=== PATIENT | female | born 1990 | race Caucasian/White ===

== ENCOUNTER 2016-11-07 06:03 | Inpatient (IN) | payer SELFPAY ==
[~2016-11-07] VITALS: Ht 170.2 cm; Wt 74.9 kg
[2016-11-07] MEDS ORDERED: SODIUM CHLORIDE 0.9% 1,000 ML IV ONE (06:29)
[2016-11-07] MEDS ORDERED: SODIUM CHLORIDE 0.9% 1,000ML IVBOLUS ONE (06:30)
[2016-11-07] MEDS ORDERED: ONDANSETRON 2MG/ML, 2ML IVPush ONE (06:30)
[2016-11-07] MEDS ORDERED: ONDANSETRON 2MG/ML, 2ML ONE (06:35)
[2016-11-07] MEDS ORDERED: MORPHINE SULFATE 4 MG/ML, 1ML ONE ×3 (06:35→08:54)
[2016-11-07] MEDS: MORPHINE SULFATE 4 MG/ML, 1ML IVPush PRN ×2 (06:40→07:34)
[2016-11-07 06:48] LABS: HCG UR OBC PASS
[2016-11-07 06:53] LABS: BLOOD UREA NITROGEN 10 mg/dL (7-18)
[2016-11-07 07:02] LABS: ASPARTATE AMINO TRANSFERASE 83 U/L (15-37)
[2016-11-07] MEDS ORDERED: CEFTRIAXONE PMX 1GM/50ML 50 ML IVPB ONE (08:30)
[2016-11-07] MEDS ORDERED: CEFTRIAXONE PMX 1GM/50ML 50 ML ONE (08:54)
[2016-11-07] MEDS ORDERED: MORPHINE SULFATE 4 MG/ML, 1ML IVPush PRN (09:00)
[2016-11-07] MEDS ORDERED: ONDANSETRON ODT 4 MG PO PRN (09:30)
[2016-11-07] MEDS ORDERED: ONDANSETRON 2MG/ML, 2ML IVPush PRN (09:30)
[2016-11-07] MEDS ORDERED: LABETALOL 5MG/ML, 20ML IVPush PRN (09:30)
[2016-11-07 10:28] VITALS: BP 161/88
[2016-11-07] MEDS ORDERED: LORazepam 0.5MG TABLET PO PRN (11:30)
[2016-11-07] MEDS ORDERED: LORazepam 2 MG/ML, 1ML IV PRN ×4 (11:30)
[2016-11-07] MEDS ORDERED: LORazepam 1MG TABLET PO PRN ×4 (11:30)
[2016-11-07] MEDS: CEFTRIAXONE PMX 1GM/50ML 50 ML IV SCH (11:30)
[2016-11-07] MEDS: METRONIDAZOLE PMX 500MG/100ML 100 ML IV SCH ×2 (11:31→20:30)
[2016-11-07] MEDS: morphine SULFATE 10 MG/ML, 1ML IVPush PRN ×5 (11:31→23:26)
[2016-11-07] MEDS: SODIUM CHLORIDE 0.9% 1,000 ML IV SCH ×2 (11:32→14:23)
[2016-11-07 13:02] VITALS: BP 129/87
[2016-11-07] MEDS: POTASSIUM CHLORIDE 20 MEQ, MAGNESIUM SULFATE 1 GM, FOLIC ACID 1 MG, THIAMINE 100 MG, MV... IV SCH (17:36)
[2016-11-07 20:16] VITALS: BP 133/87
[2016-11-08] MEDS: SODIUM CHLORIDE 0.9% 1,000 ML IV SCH ×5 (00:23→19:43)
[2016-11-08] MEDS: morphine SULFATE 10 MG/ML, 1ML IVPush PRN ×2 (02:22→05:59)
[2016-11-08 02:30] VITALS: BP 136/91
[2016-11-08] MEDS: METRONIDAZOLE PMX 500MG/100ML 100 ML IV SCH (04:02)
[2016-11-08 04:43] LABS: ASPARTATE AMINO TRANSFERASE 33 U/L (15-37); BLOOD UREA NITROGEN 5 mg/dL (7-18)
[2016-11-08 07:50] VITALS: BP 131/88
[2016-11-08] MEDS: CEFTRIAXONE PMX 1GM/50ML 50 ML IV SCH (08:16)
[2016-11-08] MEDS ORDERED: EPINEPHRINE 1 MG/ML, 1ML ONE (09:47)
[2016-11-08] MEDS ORDERED: BUPIVACAINE/PF 0.5% ONE (09:47)
[2016-11-08] MEDS ORDERED: FENTANYL PF 250 MCG/5ML ONE (09:53)
[2016-11-08] MEDS ORDERED: ONDANSETRON 2MG/ML, 2ML ONE (10:01)
[2016-11-08] MEDS ORDERED: GLYCOPYRROLATE 0.2MG/1ML ONE (10:01)
[2016-11-08] MEDS ORDERED: LIDOCAINE 2%, 10ML ONE (10:01)
[2016-11-08] MEDS ORDERED: ROCURONIUM 10 MG/ML ONE (10:01)
[2016-11-08] MEDS ORDERED: METOCLOPRAMIDE 5 MG/ML, 2ML ONE (10:01)
[2016-11-08] MEDS ORDERED: DEXAMETHASONE 4 MG/ML, 1ML ONE (10:01)
[2016-11-08] MEDS ORDERED: NEOSTIGMINE 1 MG/ML, 10ML ONE (10:01)
[2016-11-08] MEDS ORDERED: PROPOFOL 10 MG/ML, 20ML ONE (10:01)
[2016-11-08] MEDS ORDERED: BUPIVACAINE/PF-EPI 0.5% 1:200K INFIL ONE (10:20)
[2016-11-08] MEDS ORDERED: hydrALAzine 20 MG/ML, 1ML IV PRN (10:30)
[2016-11-08] MEDS ORDERED: PROMETHAZINE 25 MG/ML, 1ML IV PRN (10:30)
[2016-11-08] MEDS ORDERED: OXYcodone 5 MG/5 ML ORAL.SOL UDC PO PRN (10:30)
[2016-11-08] MEDS ORDERED: LABETALOL 5MG/ML, 20ML IV PRN (10:30)
[2016-11-08] MEDS ORDERED: FENTANYL PF 100 MCG/2ML IV PRN (10:30)
[2016-11-08] MEDS ORDERED: HYDROmorphone 1 MG/ML, 1ML IV PRN (10:30)
[2016-11-08] MEDS ORDERED: MIDAZOLAM 1 MG/ML, 2ML IV PRN (10:30)
[2016-11-08] MEDS ORDERED: MEPERIDINE/PF 25MG/0.5ML IVPush PRN (10:30)
[2016-11-08] MEDS ORDERED: ONDANSETRON 2MG/ML, 2ML IVPush PRN (10:30)
[2016-11-08] MEDS ORDERED: OXYcodone 5 MG/5 ML ORAL.SOL UDC ONE (10:57)
[2016-11-08] MEDS ORDERED: PROMETHAZINE 25 MG/ML, 1ML ONE (10:57)
[2016-11-08 12:00] VITALS: BP 116/77
[2016-11-08] MEDS: OXYcodone/APAP 5/325MG TABLET PO PRN ×2 (16:43→22:04)
[2016-11-08] MEDS: KETOROLAC 30 MG/1 ML IV SCH ×2 (16:43→22:04)
[2016-11-08 16:45] VITALS: BP 120/78
[2016-11-08] MEDS: POTASSIUM CHLORIDE 20 MEQ, MAGNESIUM SULFATE 1 GM, FOLIC ACID 1 MG, THIAMINE 100 MG, MV... IV SCH (18:06)
[2016-11-08 20:23] VITALS: BP 116/78
[2016-11-09 02:31] VITALS: BP 132/91
[2016-11-09] MEDS: OXYcodone/APAP 5/325MG TABLET PO PRN ×3 (02:44→20:17)
[2016-11-09] MEDS: SODIUM CHLORIDE 0.9% 1,000 ML IV SCH (02:45)
[2016-11-09] MEDS: KETOROLAC 30 MG/1 ML IV SCH ×4 (05:10→23:25)
[2016-11-09 05:32] LABS: ASPARTATE AMINO TRANSFERASE 57 U/L (15-37); BLOOD UREA NITROGEN 3 mg/dL (7-18)
[2016-11-09 08:30] VITALS: BP 144/95
[2016-11-09] MEDS ORDERED: SODIUM PHOSPHATE 40 MEQ in SODIUM CHLORIDE 0.9% 500 ML IV ONE (08:30)
[2016-11-09] MEDS ORDERED: SODIUM PHOSPHATE 4 MEQ/ML IV SCH (08:30)
[2016-11-09] MEDS: CEFTRIAXONE PMX 1GM/50ML 50 ML IV SCH (09:51)
[2016-11-09] MEDS: D5%-0.45% NACL 1,000 ML IV SCH ×2 (11:48→21:30)
[2016-11-09 14:23] VITALS: BP 132/91
[2016-11-09 20:02] VITALS: BP 119/80
[2016-11-09] MEDS: LORazepam 2 MG/ML, 1ML IV PRN ×2 (20:12→23:25)
[2016-11-09] MEDS ORDERED: NICOTINE 7 MG/24 HR PATCH.TD24 TD SCH (20:30)
[2016-11-10 03:48] VITALS: BP 122/78
[2016-11-10] MEDS: KETOROLAC 30 MG/1 ML IV SCH ×2 (05:35→12:48)
[2016-11-10 06:00] LABS: BLOOD UREA NITROGEN 3 mg/dL (7-18)
[2016-11-10 06:01] LABS: ASPARTATE AMINO TRANSFERASE 32 U/L (15-37)
[2016-11-10 08:25] VITALS: BP 125/86
[2016-11-10] MEDS: D5%-0.45% NACL 1,000 ML IV SCH (08:50)
[2016-11-10] MEDS: CEFTRIAXONE PMX 1GM/50ML 50 ML IV SCH (08:50)
[2016-11-10] MEDS ORDERED: FOLIC ACID 1 MG TABLET PO ONE (10:00)
[2016-11-10] MEDS ORDERED: THIAMINE 100MG TABLET PO SCH (10:00)
[2016-11-10] MEDS ORDERED: POTASSIUM CHLORIDE 20 MEQ TAB.ER.PRT PO ONE (10:00)
== END 2016-11-10 13:50 | disposition home or self-care (01) | DRG 417 ==
LOC: ED 08:10 → EDIP 09:04 → 3NW 10:14 → 4NOR 11-08 12:04
PROVIDERS: ADMIT Hospitalist; ATTEND Hospitalist
PROC: 0FT44ZZ Resection of Gallbladder, Percutaneous Endoscopic Approach (ICD-10-PCS; principal; 2016-11-08 10:00)
DX: K80.10 Calculus of gallbladder with chronic cholecystitis without obstruction (principal); K85.10 Biliary acute pancreatitis without necrosis or infection; N39.0 Urinary tract infection, site not specified; F10.239 Alcohol dependence with withdrawal, unspecified; D75.89 Other specified diseases of blood and blood-forming organs
CPT/HCPCS: 36415; 74022; 74176; 74181; 76700; 80053; 80307; 81001; 81025; 82607; 82746; 83605; 83690; 83735; 84100; 84145; 84439; 84443; 84703; 85025; 85610; 85730; 87040; 87077; 87086; 87186; 88304; 96361; 96365; 96375; 96376; J0171; J0696; J1100; J1885; J2405; J2704; J2710; J3010; J3411; J3475; J3480; J3490; J7042; J2060; J2270; J2765; J7030; J7040

== ENCOUNTER 2017-01-18 14:39 | Emergency (ER) | payer SELFPAY ==
[~2017-01-18] VITALS: Ht 170.2 cm; Wt 74.0 kg
[2017-01-18 15:15] LABS: HEMATOCRIT 48.4 % (34.6-47.8); HEMOGLOBIN 16.4 g/dL (11.7-16.4); WHITE BLOOD COUNT 9.6 x10^3/uL (3.4-10)
[2017-01-18 15:23] LABS: ASPARTATE AMINO TRANSFERASE 180 U/L (15-37); BLOOD UREA NITROGEN 4 mg/dL (7-18)
[2017-01-18 16:40] VITALS: BP 110/77
== END 2017-01-18 17:02 | disposition home or self-care (01) ==
LOC: ED 16:56
DX: K85.90 Acute pancreatitis without necrosis or infection, unspecified (principal); R10.13 Epigastric pain; F10.129 Alcohol abuse with intoxication, unspecified; Z90.49 Acquired absence of other specified parts of digestive tract
CPT/HCPCS: 36415; 76700; 80053; 81001; 83690; 84703; 85025; 87086; 99285

== ENCOUNTER 2017-03-23 21:30 | Inpatient (IN) | payer OTHER ==
[~2017-03-23] VITALS: Ht 170.2 cm; Wt 78.0 kg
[2017-03-23 22:13] LABS: HEMATOCRIT 48.3 % (34.6-47.8); HEMOGLOBIN 16.5 g/dL (11.7-16.4); WHITE BLOOD COUNT 11.7 x10^3/uL (3.4-10)
[2017-03-23 22:24] LABS: ASPARTATE AMINO TRANSFERASE 124 U/L (15-37); BLOOD UREA NITROGEN 5 mg/dL (7-18)
[2017-03-23] MEDS ORDERED: ONDANSETRON 2MG/ML, 2ML IVPush ONE (22:30)
[2017-03-23] MEDS ORDERED: morphine SULFATE 10 MG/ML, 1ML IVPush ONE (22:30)
[2017-03-23] MEDS ORDERED: SODIUM CHLORIDE 0.9% 1,000ML IVBOLUS ONE (22:30)
[2017-03-23] MEDS ORDERED: morphine SULFATE 10 MG/ML, 1ML ONE (22:46)
[2017-03-23] MEDS ORDERED: ONDANSETRON 2MG/ML, 2ML ONE (22:46)
[2017-03-24] MEDS ORDERED: CEFTRIAXONE PMX 1GM/50ML 50 ML ONE (00:25)
[2017-03-24] MEDS ORDERED: morphine SULFATE 10 MG/ML, 1ML ONE (00:27)
[2017-03-24] MEDS ORDERED: CEFTRIAXONE PMX 1GM/50ML 50 ML IV ONE (00:30)
[2017-03-24] MEDS ORDERED: MORPHINE SULFATE 4 MG/ML, 1ML IVPush ONE (01:00)
[2017-03-24 01:38] VITALS: BP 120/85
[2017-03-24] MEDS ORDERED: hydrALAzine 20 MG/ML, 1ML IVPush PRN (02:30)
[2017-03-24] MEDS ORDERED: ACETAMINOPHEN 325 MG TABLET PO PRN (02:30)
[2017-03-24] MEDS ORDERED: ACETAMINOPHEN 500 MG TABLET PO PRN (02:39)
[2017-03-24] MEDS: ENOXAPARIN 40 MG/0.4 ML SQ SCH (02:48)
[2017-03-24] MEDS: KETOROLAC 30 MG/1 ML IVPush PRN ×2 (02:48→10:07)
[2017-03-24] MEDS: HYDROmorphone 2 MG/ML, 1ML IVPush PRN ×7 (02:48→23:11)
[2017-03-24] MEDS: LACTATED RINGERS 1,000 ML IV SCH ×3 (02:49→19:10)
[2017-03-24] MEDS: POTASSIUM CHLORIDE 20 MEQ, MAGNESIUM SULFATE 2 GM, THIAMINE 100 MG, MVI ADULT 10 ML in ... IV SCH ×2 (03:20→09:12)
[2017-03-24 05:26] LABS: HEMATOCRIT 42.5 % (34.6-47.8); HEMOGLOBIN 14.6 g/dL (11.7-16.4); WHITE BLOOD COUNT 10.1 x10^3/uL (3.4-10)
[2017-03-24 05:49] LABS: ASPARTATE AMINO TRANSFERASE 91 U/L (15-37); BLOOD UREA NITROGEN 6 mg/dL (7-18)
[2017-03-24 07:39] VITALS: BP 115/67
[2017-03-24] MEDS ORDERED: POTASSIUM CHLORIDE 20 MEQ TAB.ER.PRT PO ONE (09:30)
[2017-03-24] MEDS ORDERED: PANTOPRAZOLE 40 MG IV IVPush SCH (09:30)
[2017-03-24] MEDS: CEFTRIAXONE PMX 1GM/50ML 50 ML IV SCH (10:41)
[2017-03-24] MEDS: THIAMINE 100MG TABLET PO SCH (12:50)
[2017-03-24] MEDS: FOLIC ACID 1 MG TABLET PO SCH (12:50)
[2017-03-24] MEDS: MULTIVIT.W/IRON, MINERALS ORAL SOL PO SCH (12:50)
[2017-03-24 16:13] VITALS: BP 118/73
[2017-03-24 19:03] VITALS: BP 133/94
[2017-03-24] MEDS: ONDANSETRON 2MG/ML, 2ML IVPush PRN (19:58)
[2017-03-24] MEDS: PANTOPROZOLE 40MG TABLET PO SCH (21:37)
[2017-03-25 00:49] VITALS: BP 126/82
[2017-03-25] MEDS: LACTATED RINGERS 1,000 ML IV SCH ×2 (01:27→08:23)
[2017-03-25] MEDS: ENOXAPARIN 40 MG/0.4 ML SQ SCH (02:10)
[2017-03-25] MEDS: HYDROmorphone 2 MG/ML, 1ML IVPush PRN ×2 (02:10→08:13)
[2017-03-25] MEDS: ONDANSETRON 2MG/ML, 2ML IVPush PRN ×2 (02:10→08:13)
[2017-03-25 06:16] LABS: HEMATOCRIT 40.9 % (34.6-47.8); HEMOGLOBIN 13.7 g/dL (11.7-16.4); WHITE BLOOD COUNT 8.5 x10^3/uL (3.4-10)
[2017-03-25 06:26] LABS: BLOOD UREA NITROGEN 5 mg/dL (7-18)
[2017-03-25 06:29] LABS: ASPARTATE AMINO TRANSFERASE 149 U/L (15-37)
[2017-03-25] MEDS: THIAMINE 100MG TABLET PO SCH (09:39)
[2017-03-25] MEDS: MULTIVIT.W/IRON, MINERALS ORAL SOL PO SCH (09:39)
[2017-03-25] MEDS: PANTOPROZOLE 40MG TABLET PO SCH (09:40)
[2017-03-25] MEDS: FOLIC ACID 1 MG TABLET PO SCH (09:40)
[2017-03-25] MEDS: CEFTRIAXONE PMX 1GM/50ML 50 ML IV SCH (09:42)
[2017-03-25 10:35] VITALS: BP 107/72
[2017-03-25] MEDS ORDERED: THIA100T6 PO (14:19)
[2017-03-25] MEDS ORDERED: Multivit.w/Iron, Minerals PO (14:19)
[2017-03-25] MEDS ORDERED: PANT40TA5 PO (14:19)
[2017-03-25] MEDS ORDERED: FOLI-17 PO (14:19)
[2017-03-25] MEDS ORDERED: CEFD300C37 PO (14:19)
[2017-03-25 14:36] VITALS: BP 122/83
== END 2017-03-25 16:40 | disposition home or self-care (01) | DRG 689 ==
LOC: ED 22:38 → EDIP 03-24 00:24 → 4NOR 03-24 01:24
PROVIDERS: ADMIT Hospitalist; ATTEND Hospitalist
DX: N30.90 Cystitis, unspecified without hematuria (principal); K85.20 Alcohol induced acute pancreatitis without necrosis or infection; D69.6 Thrombocytopenia, unspecified; E44.0 Moderate protein-calorie malnutrition; E86.0 Dehydration; D75.89 Other specified diseases of blood and blood-forming organs; Z68.26 Body mass index [BMI] 26.0-26.9, adult; E87.6 Hypokalemia; F10.10 Alcohol abuse, uncomplicated; F17.210 Nicotine dependence, cigarettes, uncomplicated; D72.829 Elevated white blood cell count, unspecified; B96.20 Unspecified Escherichia coli [E. coli] as the cause of diseases classified elsewhere; Z90.49 Acquired absence of other specified parts of digestive tract
CPT/HCPCS: 36415; 76770; 80053; 80061; 80074; 81001; 82607; 82746; 83690; 83735; 84100; 84443; 84478; 84703; 85025; 85610; 87077; 87086; 87186; 96361; 96374; 96375; 96376; J0696; J1170; J1650; J1885; J2405; J3411; J3475; J3480; J7042; C9113; J2270; J7030; J7120

== ENCOUNTER 2017-05-08 22:04 | Emergency (ER) | payer OTHER ==
[~2017-05-08] VITALS: Ht 170.2 cm; Wt 70.3 kg
[~2017-05-08 22:04] MED LIST: CEFD300C37 PO; FOLI-17 PO; Multivit.w/Iron, Minerals PO; PANT40TA5 PO; THIA100T6 PO
[2017-05-08 22:10] VITALS: BP 138/97
[2017-05-08 22:55] LABS: MICROSCOPIC INDICATED
[2017-05-08] MEDS ORDERED: KETOROLAC 30 MG/1 ML IM ONE (23:00)
[2017-05-08 23:11] LABS: CULTURE INDICATED? NO
[2017-05-08] MEDS ORDERED: KETOROLAC 30 MG/1 ML ONE (23:34)
== END 2017-05-09 00:21 | disposition home or self-care (01) ==
LOC: ED 23:58
DX: M94.0 Chondrocostal junction syndrome [Tietze] (principal); J20.8 Acute bronchitis due to other specified organisms; B96.89 Other specified bacterial agents as the cause of diseases classified elsewhere; Z87.19 Personal history of other diseases of the digestive system
CPT/HCPCS: 71020; 81001; 96372; 99285; J1885